=== PATIENT | male | born 1995 | race Caucasian/White ===

== ENCOUNTER 2024-01-05 09:26 | Emergency (ER) | payer OTHER ==
[~2024-01-05] VITALS: Ht 185.4 cm; Wt 113.4 kg
[~2024-01-05 09:26] MED LIST: OMNICEF300 MG PO
[2024-01-05 09:36] VITALS: BP 126/84
[2024-01-05] MEDS ORDERED: PREDNISONE50 MG PO (11:42)
== END 2024-01-05 12:13 | disposition home or self-care (01) ==
LOC: ED 09:26
DX: B34.9 Viral infection, unspecified (principal); Z20.822 Contact with and (suspected) exposure to COVID-19

== ENCOUNTER 2024-03-03 10:00 | Emergency (ER) | payer OTHER ==
[~2024-03-03] VITALS: Ht 185.4 cm; Wt 127.0 kg
[~2024-03-03 10:00] MED LIST changes: +PREDNISONE50 MG PO
[2024-03-03 10:13] VITALS: BP 133/77
[2024-03-03] MEDS ORDERED: SODIUM CHLORIDE 0.9% 1,000 ML IV ONE (10:35)
[2024-03-03] MEDS ORDERED: Dexamethasone Sodium Phospha 20 MG/5 ML VIAL IV ONE (10:35)
[2024-03-03] MEDS ORDERED: LORazepam 2 MG/ML VIAL IV ONE (10:35)
[2024-03-03 10:53] LABS: BASO % 0.3 % (0.0-1.0); EOS # 0.1 10*3/uL (0.0-0.4); EOS % 0.7 % (1.0-4.0); HEMATOCRIT 42.9 % (42.0-52.0); LYMPH # 1.5 10*3/uL (1.3-4.4); LYMPH % 12.5 % (27.0-41.0); MEAN CELL VOLUME 88.3 fl (80.0-94.0); MEAN CORPUSCULAR HGB 29.8 pg (27.0-31.0); MEAN CORPUSCULAR HGB CONC 33.8 g/dl (33.0-37.0); MEAN PLATELET VOLUME 10.5 fl (9.6-12.3); MONO # 0.8 10*3/uL (0.1-1.0); MONO % 6.6 % (3.0-9.0); NEUT # 9.5 10*3/uL (2.3-7.9); NEUT % 79.3 % (47.0-73.0); PLATELET COUNT AUTOMATED 261 10*3/uL (130-400); RED BLOOD COUNT 4.86 10*6/uL (4.50-5.90); RED CELL DISTRI WIDTH 12.8 % (0-14.5)
[2024-03-03 11:09] LABS: ALKALINE PHOSPHATASE 62 U/L (46-116); BUN 10 mg/dl (9-23); CHLORIDE 104 mmol/L (98-107); POTASSIUM 3.8 mmol/L (3.4-5.1); SGPT/ALT 60 U/L (5-49); TOTAL PROTEIN 7.6 gm/dL (6.0-8.0)
[2024-03-03] MEDS ORDERED: MEDROL DOSEPAK4 MG PO (12:44)
== END 2024-03-03 12:59 | disposition home or self-care (01) ==
LOC: ED 10:00
PROVIDERS: Internal Medicine
DX: F41.9 Anxiety disorder, unspecified (principal); Z20.822 Contact with and (suspected) exposure to COVID-19; M06.9 Rheumatoid arthritis, unspecified; J45.909 Unspecified asthma, uncomplicated; F12.90 Cannabis use, unspecified, uncomplicated; Z90.89 Acquired absence of other organs

== ENCOUNTER 2024-08-11 10:44 | Emergency (ER) | payer OTHER ==
[~2024-08-11] VITALS: Wt 131.5 kg
[~2024-08-11 10:44] MED LIST changes: +MEDROL DOSEPAK4 MG PO
[2024-08-11 10:54] VITALS: BP 128/78
[2024-08-11] MEDS ORDERED: AVPAK AZITHROM250 M1 PO (11:16)
[2024-08-11] MEDS ORDERED: VENT7GM INH (11:28)
== END 2024-08-11 11:32 | disposition home or self-care (01) ==
LOC: ED 10:44
DX: J45.909 Unspecified asthma, uncomplicated (principal); Z90.89 Acquired absence of other organs

== ENCOUNTER 2024-08-14 10:29 | Emergency (ER) | payer OTHER ==
[~2024-08-14] VITALS: Wt 131.5 kg
[~2024-08-14 10:29] MED LIST changes: +AVPAK AZITHROM250 M1 PO; +VENT7GM INH
[2024-08-14 10:36] VITALS: BP 139/81
[2024-08-14] MEDS ORDERED: SODIUM CHLORIDE 0.9% 1,000 ML IV ONE (12:20)
[2024-08-14] MEDS ORDERED: methylPREDNISolone sod succ 125 MG VIAL IV ONE (12:25)
[2024-08-14] MEDS ORDERED: Albuterol Sulf/Ipratropium 3 ML VIAL NEB ONE (12:25)
[2024-08-14 12:56] LABS: HEMATOCRIT 42.6 % (42.0-52.0); MEAN CELL VOLUME 87.7 fl (80.0-94.0); MEAN CORPUSCULAR HGB CONC 33.1 g/dl (33.0-37.0); MEAN PLATELET VOLUME 10.1 fl (9.6-12.3); PLATELET COUNT AUTOMATED 180 10*3/uL (130-400); RED BLOOD COUNT 4.86 10*6/uL (4.50-5.90); RED CELL DISTRI WIDTH 13.1 % (0-14.5); WHITE BLOOD COUNT 5.3 10*3/uL (4.8-10.8)
[2024-08-14 12:57] LABS: MANUAL DIFF REFLEX YES
[2024-08-14 13:18] LABS: ATYPICAL LYMPHS 4 % (0-0); BASOPHILS 1 % (0-1); PLATELET SUFFICIENCY NORMAL (NORMAL); TOTAL CELLS COUNTED 100 #CELLS
[2024-08-14 13:19] LABS: POLYCHROMASIA SLIGHT
[2024-08-14 13:25] LABS: ALKALINE PHOSPHATASE 70 U/L (46-116); BUN 6 mg/dl (9-23); CHLORIDE 103 mmol/L (98-107); POTASSIUM 3.8 mmol/L (3.4-5.1); SGPT/ALT 89 U/L (5-49); TOTAL PROTEIN 7.7 gm/dL (6.0-8.0)
[2024-08-14] MEDS ORDERED: IOHEXOL 350 MG/ML 100 ML VIAL IV ONE (13:25)
[2024-08-14] MEDS ORDERED: SODIUM CHLORIDE 0.9% 100 ML BAG IV ONE (13:25)
[2024-08-14] MEDS ORDERED: ALBUTEROL 8 GM INHALER INH ONE (16:30)
[2024-08-14] MEDS ORDERED: PREDNISONE20 M1 PO (16:39)
[2024-08-14] MEDS ORDERED: ZITHROMAX250 MG PO (16:39)
== END 2024-08-14 17:33 | disposition home or self-care (01) ==
LOC: ED 10:29
PROVIDERS: Nurse Practitioner
DX: J98.4 Other disorders of lung (principal); J45.909 Unspecified asthma, uncomplicated; R91.1 Solitary pulmonary nodule; F17.210 Nicotine dependence, cigarettes, uncomplicated; Z90.89 Acquired absence of other organs

== ENCOUNTER 2025-05-26 00:10 | Emergency (ER) | payer OTHER ==
[~2025-05-26] VITALS: Ht 185.4 cm; Wt 136.1 kg
[~2025-05-26 00:10] MED LIST changes: +PREDNISONE20 M1 PO; +ZITHROMAX250 MG PO
[2025-05-26 00:22] VITALS: BP 145/83
[2025-05-26] MEDS ORDERED: Ondansetron Hydrochloride 4 MG/2 ML VIAL IV ONE (01:05)
[2025-05-26] MEDS ORDERED: SODIUM CHLORIDE 0.9% 1,000 ML IV ONE (01:05)
[2025-05-26 01:23] LABS: BASO # 0.0 10*3/uL (0.0-0.1); BASO % 0.3 % (0.0-1.0); EOS # 0.3 10*3/uL (0.0-0.4); EOS % 2.1 % (1.0-4.0); MEAN CELL VOLUME 89.2 fl (80.0-94.0); MEAN CORPUSCULAR HGB 29.0 pg (27.0-31.0); MEAN PLATELET VOLUME 10.9 fl (9.6-12.3); MONO # 0.8 10*3/uL (0.1-1.0); MONO % 6.0 % (3.0-9.0); NEUT # 9.5 10*3/uL (2.3-7.9); NEUT % 75.2 % (47.0-73.0); NUCLEATED RED BLOOD CELL 0.0 % (0.0-0.0); NUCLEATED RED BLOOD CELL 0.0 10*3/uL (0.0-0.0); PLATELET COUNT AUTOMATED 262 10*3/uL (130-400); RED CELL DISTRI WIDTH 12.9 % (0-14.5)
[2025-05-26 01:44] LABS: BUN 9 mg/dl (9-23); SGPT/ALT 61 U/L (5-49)
== END 2025-05-26 03:46 | disposition home or self-care (01) ==
LOC: ED 00:10
PROVIDERS: Emergency Medicine
DX: R11.2 Nausea with vomiting, unspecified (principal); R74.01 Elevation of levels of liver transaminase levels; R73.9 Hyperglycemia, unspecified; F41.9 Anxiety disorder, unspecified; Z98.890 Other specified postprocedural states; M06.9 Rheumatoid arthritis, unspecified

== ENCOUNTER 2025-06-20 03:53 | Emergency (ER) | payer OTHER ==
[~2025-06-20] VITALS: Ht 182.8 cm; Wt 131.5 kg
[2025-06-20 04:00] VITALS: BP 123/79
[2025-06-20 04:43] LABS: BASO # 0.1 10*3/uL (0.0-0.1); BASO % 0.5 % (0.0-1.0); EOS # 0.2 10*3/uL (0.0-0.4); EOS % 2.0 % (1.0-4.0); MEAN CELL VOLUME 89.4 fl (80.0-94.0); MEAN CORPUSCULAR HGB 28.8 pg (27.0-31.0); MEAN PLATELET VOLUME 10.6 fl (9.6-12.3); MONO # 0.9 10*3/uL (0.1-1.0); MONO % 7.8 % (3.0-9.0); NEUT # 8.8 10*3/uL (2.3-7.9); NEUT % 72.5 % (47.0-73.0); NUCLEATED RED BLOOD CELL 0.0 % (0.0-0.0); NUCLEATED RED BLOOD CELL 0.0 10*3/uL (0.0-0.0); PLATELET COUNT AUTOMATED 245 10*3/uL (130-400); RED CELL DISTRI WIDTH 13.1 % (0-14.5)
[2025-06-20 05:08] LABS: BUN 11 mg/dl (9-23)
[2025-06-20] MEDS ORDERED: INDOMETHACIN50 MG PO (05:34)
== END 2025-06-20 06:04 | disposition home or self-care (01) ==
LOC: ED 03:53
PROVIDERS: Emergency Medicine
DX: M10.071 Idiopathic gout, right ankle and foot (principal); F41.9 Anxiety disorder, unspecified; F84.0 Autistic disorder; Z98.890 Other specified postprocedural states